=== PATIENT | male | born 2000 | race Caucasian/White ===

== ENCOUNTER 2024-11-06 13:17 | Emergency (ER) | payer OTHER ==
[~2024-11-06] VITALS: Ht 180.3 cm; Wt 77.0 kg
[2024-11-06] VITALS (15 sets, daily range): BP systolic 99–136; BP diastolic 49–83
[2024-11-06] MEDS ORDERED: KETOROLAC TROMETHAMINE 30 MG/ML SDV IV STA (13:50)
[2024-11-06] MEDS ORDERED: SODIUM CHLORIDE 0.9% 1,000 ML IV STA (13:50)
[2024-11-06] MEDS ORDERED: ONDANSETRON HCl 4 MG/2 ML SDV IV STA (13:50)
[2024-11-06] MEDS ORDERED: MORPHINE SULFATE 4 MG/ML VIAL IV STA (14:13)
[2024-11-06 14:22] LABS: BASO% 0.3 % (0-3); EOS% 1.4 % (0-8); HEMATOCRIT 45.6 % (39.0-50.0); HEMOGLOBIN 15.8 g/dl (14.0-18.0); IMMATURE GRANULOCYTES 0.1 % (0.0-5.0); LYMPH% 23.6 % (15-41); MEAN CELL VOLUME 92.7 fL CALC (80.0-100.0); MEAN CORPUSCULAR HGB 32.1 pG CALC (26.0-32.0); MEAN CORPUSCULAR HGB CONC 34.6 g/dL CAL (32.0-36.0); NEUT# 6.29 thou/uL (1.82-7.42); NEUT% 68.6 % (42-76); RED BLOOD COUNT 4.92 mill/uL (4.70-6.10); RED CELL DISTRI WIDTH 11.9 % (11.5-15.5)
[2024-11-06] MEDS ORDERED: SODIUM CHLORIDE 0.9% 1,000 ML IV ONE (14:55)
[2024-11-06 15:12] LABS: ALBUMIN 5.1 g/dL (3.2-5.0); BILIRUBIN, TOTAL 1.9 mg/dL (0.2-1.3); POTASSIUM 3.8 mmol/l (3.5-5.1); TOTAL PROTEIN 7.9 g/dL (6.3-8.2)
[2024-11-06 15:15] LABS: URINE BLOOD DIPSTICK Large (NEGATIVE); URINE COLOR Brown; URINE GLUCOSE - DIPSTICK 100 mg/dL (NEGATIVE); URINE KETONE 40 mg/dL (NEGATIVE); URINE LEUK ESTERASE Negative (NEGATIVE); URINE NITRITE - DIPSTICK Negative (Negative); URINE PH 5.5 (4.5-8.0); URINE PROTEIN - DIPSTICK >=300 mg/dL (NEG-TRACE); URINE SPECIFIC GRAVITY >=1.030; URINE UROBILINOGEN - DIPSTICK 0.2 E.U./dL (0.2)
[2024-11-06 15:16] LABS: URINE BACTERIA MANY hpf; URINE EPITHELIAL CELLS MANY EPI/hpf (0-FEW); URINE MUCUS MANY hpf (NONE-FEW); URINE RBC >100 RBC/hpf (0-5); URINE WBC >100 WBC/hpf (0-5)
[2024-11-06] MEDS ORDERED: cefTRIAXone SODIUM 2 GM in SODIUM CHLORIDE 0.9% 100 ML IV ONE (16:20)
[2024-11-06] MEDS ORDERED: MORPHINE SULFATE 4 MG/ML VIAL IV ONE (16:20)
[2024-11-06] MEDS ORDERED: TAMSULOSIN HCL 0.4 MG CAP PO ONE (17:10)
[2024-11-06] MEDS ORDERED: TAMSULOSIN0.4 MG PO (17:11)
[2024-11-06] MEDS ORDERED: KEFLEX500 MG PO (17:11)
[2024-11-06] MEDS ORDERED: ZOFRAN4 MG/TAB PO (17:11)
[2024-11-06] MEDS ORDERED: TORADOL PO (17:11)
[2024-11-06] MEDS ORDERED: PERCOCET 5/321 COMBO PO ×2 (17:11→17:12)
== END 2024-11-06 17:46 | disposition home or self-care (01) | DRG 694 ==
LOC: ED 13:17
PROVIDERS: Nurse Practitioner
DX: N20.1 Calculus of ureter (principal); N39.0 Urinary tract infection, site not specified
CPT/HCPCS: J0696; J2405